=== PATIENT | female | born 1975 | race Caucasian/White ===

== ENCOUNTER 2025-04-25 21:25 | Emergency (ER) | payer MEDICAID, OTHER ==
[~2025-04-25] VITALS: Ht 152.4 cm; Wt 72.7 kg
--- NOTE | 2025-04-25 21:47 | Physician Documentation ---
History of Present Illness ~ Chief Complaint: Mechanical Fall Stated Complaint: FALL, R ARM PAIN Time Seen by MD: 21:41 Primary Medical Doctor: NAKIA VASQUEZ This is a 49-year-old female who is gainfully employed and [place] presents for evaluation of potential injuries sustained in a mechanical ground level fall. She states that she was turning around, when another co-worker that was running, collided with her, not sure of her feet and she slipped on the floor falling onto her right side. She reports an immediate onset sharp nonradiating pain in her right side of the head, right shoulder, right elbow. No particular palliating or aggravating factors. She took some ibuprofen with mild improvement of pain. Pain is gradually improving. She was sent here to get evaluated because of this being worker's comp injury. Denies loss of consciousness. Denies any chest pain or difficulty breathing, denies any abdominal pain. Denies any concerns for tobacco, alcohol or illicit substances use Tetanus within 5 Years?: No Medication Reconciliation Allergies: Coded Allergies: Penicillins (Verified Allergy, Intermediate, hives, 09/06/18) Past Medical History Past Medical History: Diabetes Past Surgical History: noncontributory Drug Use: none Lives with: Family Lives In: Home Review of Systems ROS 10 point review of systems was performed and unless noted above in HPI is negative for acute process/complaint. Physical Exam Vital Signs: Temperature: 97.8, Heart Rate: 79, Respiratory Rate: 16, BP: 156/87, Pulse Oximetry: 99, Weight: 72.730 Oxygen Flow Rate: 0 Physical Exam GENERAL: Awake, alert, oriented, GCS 15, no apparent distress, non-toxic appearing, answers questions, follows commands appropriately. Examined in triage HEENT: Atraumatic, normocephalic, pupils equal, extraocular muscles intact, sclerae anicteric, mucus membranes moist, oropharynx is clear, no stridor. NECK: supple, full active range of motion, trachea midline, no thyromegaly, no lymphadenopathy, no JVD. CARDIOVASCULAR: regular rate/rhythm, no murmurs/gallops/rubs, Pulses are 2+ in all extremities and symmetric. Capillary refill less than 2 seconds. PULMONARY: Nonlabored, good air movement ,no respiratory distress, speaking in full sentences, clear to auscultation bilaterally, no wheezing, no ronchi, no rales, no accessory muscle use. GASTROINTESTINAL: Soft, non-tender, non-distended, normal active bowel sounds, no organomegaly, no pulsatile masses, no CVA tenderness. NEUROLOGIC: Lucid with normal mental status. Normal facial symmetry. Moves all extremities symmetrically and with purpose. No truncal ataxia. Speech is fluid without evidence of dysarthria or aphasia, no focal deficits appreciated. MUSCULOSKELETAL: There is full range of motion of all extremities. There is no joint pain or joint swelling or joint erythema. There is no muscle pain or tenderness or swelling. EXTREMITIES: warm, well-perfused, no cyanosis, no clubbing, no edema, no acute deformities. Skin: warm, dry, no rashes or lesions, no jaundice, no petechiae orpurpura. No ecchymosis. PSYCHIATRIC: Normal affect, normal insight, normal concentration. Focused exam: [] Full range of motion of the right upper extremity, neurovascularly intact distally to the site of injury. Progress Results/Orders Results/Orders Orders - CORBY MARRERO DO Ct Head (04/25/25 21:41) Ct Cervical Spine (04/25/25 ) Shoulder, Complete (Min 2 Vws) (04/25/25 ) Elbow, Complete (3vw Min) (04/25/25 ) Completed Orders - CORBY MARRERO DO Ct Head (04/25/25 21:41) Ct Cervical Spine (04/25/25 ) Shoulder, Complete (Min 2 Vws) (04/25/25 ) Elbow, Complete (3vw Min) (04/25/25 ) Ketorolac Trometh 30mg/Ml Vial (Toradol (04/25/25 21:45) Medications Received in ER Medications (Trade) Dose Ordered Sig/Allie Route PRN Reason Start Time Stop Time Status Last Admin Dose Admin (Toradol inj. 30mg/ml) 30 mg ONCE ONCE IM 04/25/25 21:45 04/25/25 21:46 DC 04/25/25 22:06 30 MG Vital Signs 04/25/25 04/25/25 04/25/25 04/25/25 21:30 22:03 22:06 22:57 Temp 97.8 Pulse 79 Resp 16 18 16 16 B/P (MAP) 156/87 Pulse Ox 99 O2 Flow Rate 0 Medical Decision Making Findings Facility Status: ED Holds, RME process The plan was discussed with the patient, who demonstrates clear understanding of the plan and is in agreement with the plan unless otherwise noted in the chart. All questions have been answered, all concerns were addressed unless otherwise documented. I was available throughout their ED stay for frequent reassessment and questions. Differential Diagnoses (considered and possible or likely): [Ground level fall, acute traumatic pain, closed head injury, concussion, subdural, subarachnoid, cervical spine fracture or subluxation, right shoulder contusion versus fracture versus dislocation, right elbow contusion versus fracture versus dislocation] ??Differential Diagnoses (considered and unlikely, not requiring evaluation currently): [Unlikely to represent acute injury to chest, abdomen and pelvis] MDM Data Please see [facility] for the following: Independent Historians and external Records Review. Historian: [Patient] Independent Historians: ?[None] Medication Management: [Reviewed medication list] Social History and determinants: [Reviewed] Please see the body of the note for the following: Any independent interpretations of ECG, imaging studies. All vitals signs/haemodynamics, ordered tests were independently reviewed and interpreted by myself. Nursing triage complaint and vitals reviewed, additional nursing notes were reviewed as available and I agree unless otherwise noted or documented in contradiction in the chart Vital Signs: Independently reviewed Labs: Independently interpreted Imaging: Independently interpreted Old Medical Records: Independently reviewed, see [facility] for relevant summary and information Pulse Oximetry: [99%] interpreted as [normal on room air] by me Additionally notably showing: [Hemodynamically stable. Imaging shows no acute disease. No fracture or dislocation of the shoulder or elbow] Tests considered but not ordered include: [Hematologic workup has been considered but does not appear to be necessary given mechanical nature of the injury.] Social Determinants of Health Impact: Patient was evaluated in [facility], [employer] [place] to healthcare due to below par ratio of patient to medical providers. [] Comorbid Conditions Impacting Present Evaluation and Care/Treatment: [None reported by the patient] Management Discussions with other Healthcare Providers: [None] Treatment and Disposition Medication Management (Given or considered): [Pain management]. See EMR for details Consideration for Hospitalization/Escalation/Deescalation of Care: Admission for observation has been considered, [however the patient is able to tolerate p.o., their symptoms are controlled, they are able to rely on oral medications, and their chief complaint/diagnosis can be managed on outpatient basis.] ?ED Course:?[No clinical deterioration] ?Shared decision making:?[Patient is hemodynamically stable for discharge home with follow with their primary care provider. [ ] Specific and cautious return precautions provided and discussed with full understanding. Any incidental findings were also discussed and follow up recommendations given. [] All questions answered. Patient/family were able to verbalize back return precautions. Patient/family agree to plan. Copies of imaging and laboratory studies were provided.] Code status:?FULL Please see the full Electronic Medical Record for full details of nursing documentation, medications list, other records of complete past medical history and conditions, vital signs, laboratory studies, and any radiologic study interpretations by radiologists. Portions of this note were completed using [employer] dictation software and as a result there may exist minor errors in spelling. I have reviewed elements of past family and social history and agree as included in note. Departure Disposition: 01 HOME / SELF CARE / HOMELESS Impression: Primary Impression: Ground-level fall Additional Impressions: Acute traumatic pain Closed head injury Contusion of right shoulder Contusion of right elbow Condition: Improved Discharge Instructions: Contusion Referrals: NO PRIMARY CARE PROVIDER (PCP) Education Educated: Patient Educated regarding: diagnosis, treatment, prognosis, need for follow up Signature Scribe Signature: No scribe Attestation: This note accurately reflects clinical decisions, work performed by myself, Corby Marrero, CORBY COLLADO DO Apr 25, 2025 21:47
[2025-04-25] MEDS: ketorolac trometh 30MG/ML vial 30 MG/ML VIAL IM ONE (22:06)
--- NOTE | 2025-04-25 22:13 | RADIOLOGY REPORT ---
CT CT HEAD INDICATION: Fall with a head strike COMPARISON: None TECHNIQUE: CT of the head without intravenous contrast. RADIATION DOSE: CTDIvol: mGy, DLP: mGy*cm FINDINGS: There is no evidence of intracranial hemorrhage, infarct, extra-axial collection, mass effect, midlin e shift, herniation or hydrocephalus. The ventricles, sulci and cisterns are normal. The lobo-white d ifferentiation is intact. Visualized paranasal sinuses and mastoid air cells are clear. Soft tissues and osseous structures are unremarkable. IMPRESSION: No intracranial abnormality identified.
--- NOTE | 2025-04-25 22:13 | RADIOLOGY REPORT ---
EXAM: CT CT CERVICAL SPINE HISTORY: Fall with a head strike COMPARISON: None CTDIvol mGy, DLP mGy*cm. TECHNIQUE: Multiple axial CT images of the spine were obtained using bone algorithm. Axial and coron al reformatting was done. Bone and soft tissue windows were reviewed. FINDINGS: No prevertebral soft tissue abnormality noted. Mild straightening of the normal cervical lordosis. No listhesis. The cervical vertebral bodies appear unremarkable with no evidence of fracture or disloca tion. Paraspinal soft tissues appear unremarkable. No significant disc-osteophyte, spinal canal or ne ural foraminal stenosis at any of the levels in the cervical spine. IMPRESSION: No abnormality demonstrated.
--- NOTE | 2025-04-25 23:15 | RADIOLOGY REPORT ---
CLINICAL INDICATION: Fall, injury and pain in shoulder and elbow TECHNIQUE: DI ELBOW, COMPLETE (3VW MIN) Comparison: None FINDINGS/IMPRESSION: : There is no evidence of acute fracture or dislocation. Soft tissues are unremarkable.
--- NOTE | 2025-04-25 23:17 | RADIOLOGY REPORT ---
CLINICAL INDICATION: Fall, injury and pain in shoulder and elbow TECHNIQUE: DI SHOULDER, COMPLETE (MIN 2 VWS) Comparison: None FINDINGS/IMPRESSION: : There is no evidence of acute fracture or dislocation. Soft tissues are unremarkable.
[2025-04-25 23:47] VITALS: BP 143/92; PULSE 70; RESP 16; TEMP 97.8; O2SAT 100
== END 2025-04-25 23:49 | disposition home or self-care (01) ==
LOC: ER 21:25
DX: S40.011A Contusion of right shoulder, initial encounter (principal); S50.01XA Contusion of right elbow, initial encounter; S09.90XA Unspecified injury of head, initial encounter; E11.9 Type 2 diabetes mellitus without complications; Z88.0 Allergy status to penicillin; W18.30XA Fall on same level, unspecified, initial encounter; Y93.89 Activity, other specified; Y92.89 Other specified places as the place of occurrence of the external cause; Y99.8 Other external cause status
CPT/HCPCS: 70450; 72125; 73030; 73080; 96372; 99285; J1885